=== PATIENT | male | born 1985 | race Caucasian/White ===

== ENCOUNTER 2017-08-17 15:08 | Observation (INO) | payer SELFPAY ==
[2017-08-17] VITALS (9 sets, daily range): BP systolic 119–149; BP diastolic 73–85
[~2017-08-17] VITALS: Ht 172.7 cm; Wt 79.4 kg
[2017-08-17] MEDS ORDERED: IV NORMAL SALINE 1000ML BAG 1,000 ML IV SCH (15:39)
[2017-08-17] MEDS ORDERED: ONDANSETRON PF 4 MG/2 ML VIAL. IV ONE (15:45)
[2017-08-17] MEDS ORDERED: PROPOFOL 20 ML IV ONE ×2 (15:45→17:52)
--- NOTE | 2017-08-17 15:47 | PHYS DOC ---
Past Medical History Past Medical History: No Pertinent History Past Surgical History: Other Additional Past Surgical Histo: Left shoulder Alcohol Use: None Drug Use: Marijuana Adult General Chief Complaint Chief Complaint: SHOULDER INJURY HPI HPI Patient is a 31 year old male who presents with complaint of left shoulder injury. The patient states that he fell proximally 6 feet over railing after he was bumped into by his dog approximately 30 minutes prior to arrival. Patient states he fell onto his left shoulder causing injury. Patient has had history of recurrent left shoulder dislocations and underwent surgery several years ago to the shoulder to try to prevent further recurrence. Patient states that he has had one dislocation since his surgery. Patient states that he is from [place], [place] and just recently moved to the [facility]. Patient does not have primary doctor. Patient rates his pain as 9 out of 10. Patient denies loss of feeling in his left hand. Patient unable to move his left upper extremity secondary to pain in the shoulder. Patient denies any other injuries. Review of Systems Review of Systems Constitutional: Denies fever or chills [] Eyes: Denies change in visual acuity, redness, or eye pain [] HENT: Denies nasal congestion or sore throat [] Respiratory: Denies cough or shortness of breath [] Cardiovascular: No additional information not addressed in HPI [] GI: Denies abdominal pain, nausea, vomiting, bloody stools or diarrhea [] : Denies dysuria or hematuria [] Musculoskeletal: Left shoulder pain[] Integument: Denies rash or skin lesions [] Neurologic: Denies headache, focal weakness or sensory changes [] Current Medications Current Medications Current Medications Medications (Trade) Dose Ordered Sig/Roberto Start Time Stop Time Status Last Admin Dose Admin Acetaminophen/ Hydrocodone Bitart (Lortab 10/325) 1 tab PRN Q3HRS PRN 08/17/17 18:15 Acetaminophen/ Hydrocodone Bitart (Lortab 7.5/325) 1 tab PRN Q3HRS PRN 08/17/17 18:15 Bisacodyl (Dulcolax Supp) 10 mg 1X PRN PRN 08/18/17 16:00 Calcium Carbonate/ Glycine (Tums) 500 mg PRN QID PRN 08/17/17 18:15 Dextrose (Dextrose 50%-Water Syringe) 12.5 gm PRN Q15MIN PRN 08/17/17 18:15 Dextrose/Sodium Chloride 1,000 ml @ 100 mls/hr Q10H 08/17/17 19:00 Fentanyl Citrate (Fentanyl 2ml Vial) 50 mcg PRN Q5MIN PRN 08/17/17 17:45 08/18/17 17:44 Hydromorphone HCl (Dilaudid) 0.5 mg PRN Q10MIN PRN 08/17/17 17:45 08/18/17 17:44 Lidocaine HCl (Lidocaine Pf 2% Vial) 5 ml STK-MED ONCE 08/17/17 17:52 08/17/17 17:53 DC Lidocaine HCl (Xylocaine-Mpf 1% Vial) 2 ml 1X PRN PRN 08/17/17 17:45 08/18/17 17:44 Magnesium Hydroxide (Milk Of Magnesia) 2,400 mg 1X PRN PRN 08/18/17 06:00 Metoclopramide HCl (Reglan) 10 mg PRN Q4HRS PRN 08/17/17 18:15 Morphine Sulfate 2 mg PRN Q1HR PRN 08/17/17 18:15 Multivitamins (Thera M Plus) 1 tab DAILY 08/18/17 09:00 Ondansetron HCl (Zofran) 4 mg PRN Q6HRS PRN 08/17/17 17:45 08/18/17 17:44 Oxycodone/ Acetaminophen (Percocet 5/325) 1 tab PRN Q3HRS PRN 08/17/17 18:15 Oxycodone/ Acetaminophen (Percocet 7.5/ 325) 1 tab PRN Q3HRS PRN 08/17/17 18:15 Prochlorperazine Edisylate (Compazine) 5 mg PACU PRN PRN 08/17/17 17:45 08/18/17 17:44 Prochlorperazine Maleate (Compazine) 10 mg PRN Q4HRS PRN 08/17/17 18:15 Propofol 20 ml @ As Directed STK-MED ONCE 08/17/17 17:52 08/17/17 17:53 DC Ringer's Solution 1,000 ml @ 30 mls/hr Q24H 08/17/17 17:39 08/18/17 05:38 Senna/Docusate Sodium (Senna Plus) 1 tab DAILY 08/18/17 09:00 Sodium Chloride (Normal Saline Flush) 10 ml QSHIFT PRN 08/17/17 18:15 Tramadol HCl (Ultram) 100 mg PRN QID PRN 08/17/17 18:15 Zolpidem Tartrate (Ambien) 5 mg PRN QHS PRN 08/17/17 18:15 Allergies Allergies Allergies Coded Allergies Type Severity Reaction Last Updated Verified ketamine Allergy Intermediate 08/17/17 Yes Physical Exam Physical Exam Constitutional: Alert, afebrile, appears in moderate to severe discomfort. [] HENT: Normocephalic, atraumatic, bilateral external ears normal, oropharynx moist, no oral exudates, nose normal. [] Eyes: PERRLA, EOMI, conjunctiva normal, no discharge. [] Neck: Normal range of motion, no tenderness, supple, no stridor. [] Cardiovascular:Heart rate regular rhythm, no murmur [] Lungs & Thorax: Bilateral breath sounds clear to auscultation [] Abdomen: Bowel sounds normal, soft, no tenderness, no masses, no pulsatile masses. [] Skin: Warm, dry, no erythema, no rash. [] Back: No tenderness, no CVA tenderness. [] Extremities: Anterior inferior left shoulder deformity, sensation and pulses intact in left hand and wrist, range of motion and left shoulder not tested secondary to pain. [] Neurologic: Alert and oriented X 3, normal motor function, normal sensory function, no focal deficits noted. [] Current Patient Data Vital Signs Vital Signs Date Time Temp Pulse Resp B/P (MAP) Pulse Ox O2 Delivery O2 Flow Rate FiO2 08/17/17 17:38 18 98 Room Air 08/17/17 17:26 08/17/17 17:07 90 08/17/17 17:03 2.0 08/17/17 15:20 98.4 98.4 Lab Values Laboratory Tests Test 08/17/17 15:20 White Blood Count 10.0 x10^3/uL (4.0-11.0) Red Blood Count 4.77 x10^6/uL (4.30-5.70) Hemoglobin 14.9 g/dL (13.0-17.5) Hematocrit 42.5 % (39.0-53.0) Mean Corpuscular Volume 89 fL (79-100) Mean Corpuscular Hemoglobin 31 pg (25-35) Mean Corpuscular Hemoglobin Concent 35 g/dL (31-37) Red Cell Distribution Width 13.6 % (11.5-14.5) Platelet Count 293 x10^3/uL (140-400) Neutrophils (%) (Auto) 68 % (31-73) Lymphocytes (%) (Auto) 22 % (24-48) L Monocytes (%) (Auto) 7 % (0-9) Eosinophils (%) (Auto) 3 % (0-3) Basophils (%) (Auto) 1 % (0-3) Neutrophils # (Auto) 6.8 x10^3uL (1.8-7.7) Lymphocytes # (Auto) 2.2 x10^3/uL (1.0-4.8) Monocytes # (Auto) 0.7 x10^3/uL (0.0-1.1) Eosinophils # (Auto) 0.3 x10^3/uL (0.0-0.7) Basophils # (Auto) 0.0 x10^3/uL (0.0-0.2) Sodium Level 140 mmol/L (136-145) Potassium Level 3.8 mmol/L (3.5-5.1) Chloride Level 102 mmol/L (98-107) Carbon Dioxide Level 29 mmol/L (21-32) Anion Gap 9 (6-14) Blood Urea Nitrogen 15 mg/dL (8-26) Creatinine 0.8 mg/dL (0.7-1.3) Estimated GFR (Cockcroft-Gault) 112.0 Glucose Level 121 mg/dL (70-99) H Calcium Level 9.0 mg/dL (8.5-10.1) Laboratory Tests 08/17/17 15:20 Laboratory Tests 08/17/17 15:20 EKG EKG Rhythm strip interpreted by me: Heart rate 87, sinus rhythm, no ectopy[] Radiology/Procedures Radiology/Procedures Indication: Left shoulder dislocation Consent: I have discussed with the patient and/or the patient home furnishings sales representative the indication, alternatives, and the possible risks and /or complications of the planned procedure and the anesthesia methods. The patient and/or patient home furnishings sales representative appear to understand and agree to proceed. Pre-Sedation Documentation and Exam: Refer to history of present illness Airway Assessment: normal, Mallampati I Prior History of Anesthesia Complications: none. ASA Classification: 1 Sedation/ Anesthesia Plan: Propofol titrated to effect Medications Used: see nursing notes. Monitoring and Safety: The patient was placed on a surveillance system monitor and vital signs, pulse oximetry and level of consciousness were continuously evaluated throughout the procedure. At 1644, the patient was given initial bolus of propofol. The patient was closely monitored until recovery from the medications was complete and the patient had returned to baseline status at 1655. Respiratory therapy was on standby at all times during the procedure. (The following sections must be completed) Post-Sedation Vital Signs: [EDM.VS] Post-Sedation Exam: Continued anterior dislocation of left shoulder Complications: none.[] Indication: Joint dislocation Consent: Consent was obtained. Procedure: The pre-reduction exam showed distal perfusion and neurologic function to be normal.. The patient was placed in the appropriate position. Anesthesia/pain control was achieved with use of propofol and fentanyl. Reduction of the left shoulder was attempted by traction countertraction, direct manipulation, and external rotation. Successful reduction was not achieved. A post-reduction exam revealed distal perfusion and neurologic function to be normal. The affected area was immobilized with a shoulder immobilizer. The patient tolerated the procedure well. Complications: Unsuccessful reduction of left shoulder dislocation. Course & Med Decision Making Course & Med Decision Making Pertinent Labs and Imaging studies reviewed. (See chart for details) Attempt was made at joint reduction as outlined in the procedure note, however the patient's shoulder dislocation remains unreduced. I spoke with Dr. Oseguera of orthopedic surgery. He agreed to come to the emergency department with plans to take patient to the operating room for outpatient joint reduction under anesthesia. Spoke with patient who is in agreement with treatment plan at this time. Patient continued to be controlled with use of fentanyl IV pending joint reduction. Dragon Disclaimer Dragon Disclaimer This electronic medical record was generated, in whole or in part, using a voice recognition dictation system. Departure Departure Impression: Primary Impression: Recurrent dislocation, left shoulder Disposition: HOME, SELF-CARE Condition: STABLE Referrals: NO PCP (PCP) AGNIESZKA MELENDEZ MD Aug 17, 2017 15:47
[2017-08-17] MEDS ORDERED: fentaNYL PF VIAL 100 MCG/2 ML VIAL ONE ×2 (15:49→18:23)
[2017-08-17 15:50] LABS: BASO % 1 % (0-3); EOS % 3 % (0-3); HEMATOCRIT 42.5 % (39.0-53.0); HEMOGLOBIN 14.9 g/dL (13.0-17.5); LYMPH # 2.2 x10^3/uL (1.0-4.8); LYMPH % 22 % (24-48); MEAN CORPUSCULAR HEMOGLOBIN 31 pg (25-35); MEAN CORPUSCULAR HGB CONC 35 g/dL (31-37); MEAN CORPUSCULAR VOLUME 89 fL (79-100); MONO % 7 % (0-9); NEUT % 68 % (31-73); PLATELET COUNT 293 x10^3/uL (140-400); RED BLOOD COUNT 4.77 x10^6/uL (4.30-5.70); RED CELL DISTRIBUTION WIDTH 13.6 % (11.5-14.5)
[2017-08-17] MEDS: fentaNYL PF VIAL 100 MCG/2 ML VIAL IV PRN ×5 (15:52→19:30)
[2017-08-17 16:01] LABS: CREATININE 0.8 mg/dL (0.7-1.3); POTASSIUM 3.8 mmol/L (3.5-5.1)
--- NOTE | 2017-08-17 17:29 | RAD ---
Indication post reduction. AP and Y views of the left shoulder were obtained at 1720 and are compared to a study at 1602 the same day. Anterior dislocation persists. There has not been a significant change relative to the previous study. IMPRESSION: Persistent anterior dislocation.
[2017-08-17] MEDS ORDERED: HYDROmorphone 2 MG/ML VIAL IV ONE (17:30)
--- NOTE | 2017-08-17 17:30 | RAD ---
Indication fall. Pain. 2 AP views and a Y-view of the left shoulder were obtained. There is an anterior dislocation. There are some cystic degenerative changes seen in the humeral head. There is a probable Hill-Sachs deformity. Postoperative changes are noted associated with the glenoid. IMPRESSION: Anterior dislocation left shoulder
[2017-08-17] MEDS ORDERED: IV RINGERS,LACTATED 1000ML 1,000 ML IV SCH (17:39)
[2017-08-17] MEDS ORDERED: HYDROmorphone 2 MG/ML VIAL IV PRN (17:45)
[2017-08-17] MEDS ORDERED: LIDOCAINE 1% PF 2 ML VIAL. ID PRN (17:45)
[2017-08-17] MEDS ORDERED: fentaNYL PF VIAL 100 MCG/2 ML VIAL IV PRN (17:45)
[2017-08-17] MEDS ORDERED: ONDANSETRON PF 4 MG/2 ML VIAL. IV PRN (17:45)
[2017-08-17] MEDS ORDERED: PROCHLORPERAZINE 10 MG/2 ML VIAL. IV PRN (17:45)
[2017-08-17] MEDS ORDERED: MORPHINE SULFATE 2 MG/ML DISP.SYRIN. IV PRN (17:45)
[2017-08-17] MEDS ORDERED: LIDOCAINE 2% PF Vial for OR 5 ML VIAL. ONE (17:52)
--- NOTE | 2017-08-17 18:11 | PDOC2 ---
CONSULT Date of Consult Date of Consult DATE: 08/17/17 TIME: 18:05 Reason for Consult Reason for Consult: Recurrent left shoulder dislocation Referring Physician Referring Physician: Osvaldo Amato Identification/Chief Complaint Chief Complaint Left shoulder pain Problems: Source Source: Patient History of Present Illness Reason for Visit: Patient is a 31-year-old gentleman who has undergone 4 prior shoulder procedures and fell over a railing landing onto an extended left upper extremity. He felt his shoulder pop operative medially. He has had about 4 or 5 prior shoulder dislocations in total. All of his most recent ones have involved a fall from a height. He works as a manual construction laborer putting a pulses. He tells me that in addition to the shoulder pain which is diffuse and worse with any attempted movement, that he also has some stiffness and heavy feelings in his fingers right now. He denies any other complaint or concern. He denies hitting his head. No other pain elsewhere right now. Past Medical History Cardiovascular: No pertinent hx Pulmonary: No pertinent hx GI: No pertinent hx Infectious disease: No pertinent hx ENT: No pertinent hx Past Surgical History Past Surgical History He had 2 arthroscopic procedures followed by ranjith Salinas which had to be redone when he fell again from a height and broke the screws and bone block. He had a subsequent bone block procedure and has not dislocated since his most recent one Family History Family History: No Significant Social History No ALCOHOL: none Drugs: Marijuana Lives: Alone Current Medications Current Medications Current Medications Fentanyl Citrate (Fentanyl 2ml Vial) 50 mcg PRN Q15MIN PRN IV PAIN GREATER THAN 3/10 Last administered on 08/17/17 17:03; Start 08/17/17 at 15:45; Stop 08/18/17 at 15:44 Sodium Chloride 1,000 ml @ 1,000 mls/hr Q1H IV Last administered on 15:52; Start 08/17/17 at 15:39; Stop 08/17/17 at 16:38; Status DC Ondansetron HCl (Zofran) 4 mg 1X ONCE IV Last administered on 08/17/17 15:52 ; Start 08/17/17 at 15:45; Stop 08/17/17 at 15:49; Status DC Propofol 20 ml @ 0 mls/hr 1X ONCE IV Last administered on 08/17/17 17:07; Start 08/17/17 at 15:45; Stop 08/17/17 at 15:49; Status DC Fentanyl Citrate (Fentanyl 2ml Vial) 100 mcg STK-MED ONCE .ROUTE ; Start at 15:49; Stop 08/17/17 at 15:50; Status DC Hydromorphone HCl (Dilaudid) 1 mg 1X ONCE IV Last administered on 08/17/17t 17:38; Start 08/17/17 at 17:30; Stop 08/17/17 at 17:31; Status DC Ondansetron HCl (Zofran) 4 mg PRN Q6HRS PRN IV NAUSEA/VOMITING; Start at 17:45; Stop 08/18/17 at 17:44 Fentanyl Citrate (Fentanyl 2ml Vial) 25 mcg PRN Q5MIN PRN IV MILD PAIN; Start 08/17/17 at 17:45; Stop 08/18/17 at 17:44 Fentanyl Citrate (Fentanyl 2ml Vial) 50 mcg PRN Q5MIN PRN IV MODERATE PAIN; Start 08/17/17 at 17:45; Stop 08/18/17 at 17:44 Morphine Sulfate 1 mg PRN Q10MIN PRN IV SEVERE PAIN; Start 08/17/17 at 17:45; Stop 08/18/17 at 17:44 Ringer's Solution 1,000 ml @ 30 mls/hr Q24H IV ; Start 08/17/17 at 17:39; Stop 08/18/17 at 05:38 Lidocaine HCl (Xylocaine-Mpf 1% Vial) 2 ml 1X PRN PRN ID IV START; Start 08/17 at 17:45; Stop 08/18/17 at 17:44 Hydromorphone HCl (Dilaudid) 0.5 mg PRN Q10MIN PRN IV SEV PAIN, Second choice; Start 08/17/17 at 17:45; Stop 08/18/17 at 17:44 Prochlorperazine Edisylate (Compazine) 5 mg PACU PRN PRN IV NAUSEA, MRX1; Start 08/17/17 at 17:45; Stop 08/18/17 at 17:44 Propofol 20 ml @ As Directed STK-MED ONCE IV ; Start 08/17/17 at 17:52; Stop 08/17/17 at 17:53; Status DC Lidocaine HCl (Lidocaine Pf 2% Vial) 5 ml STK-MED ONCE .ROUTE ; Start 08/17/17 at 17:52; Stop 08/17/17 at 17:53; Status DC Allergies Allergies: Coded Allergies: ketamine (Verified Allergy, Intermediate, 08/17/17) "hard time recovering" ROS General: No: Chills, Night Sweats, Fatigue, Malaise, Appetite, Other PSYCHOLOGICAL ROS: No: Anxiety, Behavioral Disorder, Concentration difficultie , Decreased libido, Depression, Disorientation, Hallucinations, Hostility, Irritablity, Memory difficulties, Mood Swings, Obsessive thoughts, Physical abuse, Sexual abuse, Sleep disturbances, Suicidal ideation, Other Eyes: No Blurry vision, No Decreased vision, No Double vision, No Dry eyes, No Excessive tearing, No Eye Pain, No Itchy Eyes, No Loss of vision, No Photophobia , No Scotomata, No Uses contacts, No Uses glasses, No Other ALLERGY AND IMMUNOLOGY: No: Hives, Insect Bite Sensitivity, Itchy/Watery Eyes, Nasal Congestion, Post Nasal Drip, Seasonal Allergies, Other Hematological and Lymphatic: No: Bleeding Problems, Blood Clots, Blood Transfusions, Brusing, Night Sweats, Pallor, Swollen Lymph Nodes, Other ENDOCRINE: No: Breast Changes, Galactorrhea, Hair Pattern Changes, Hot Flashes , Malaise/lethargy, Mood Swings, Palpitations, Polydipsia/polyuria, Skin Changes , Temperature Intolerance, Unexpected Weight Changes, Other Respiratory: No: Cough, Hemoptysis, Orthopnea, Pleuritic Pain, Shortness of breath, SOB with excertion, Sputum Changes, Stridor, Tachypnea, Wheezing, Other Cardiovascular: No Chest Pain, No Palpitations, No Orthopnea, No Paroxysmal Noc. Dyspnea, No Edema, No Lt Headedness, No Other Gastrointestinal: No Nausea, No Vomiting, No Abdominal Pain, No Diarrhea, No Constipation, No Melena, No Hematochezia, No Other Genitourinary: No Dysuria, No Frequency, No Incontinence, No Hematuria, No Retention, No Discharge, No Urgency, No Pain, No Flank Pain, No Other, No , No , No , No , No , No , No Musculoskeletal: Yes Joint Pain Physical Exam General: Alert, Oriented X3, mild distress HEENT: Atraumatic, PERRLA, EOMI Lungs: Clear to auscultation, Normal air movement Heart: Regular rate, No murmurs Abdomen: Normal bowel sounds, No tenderness Extremities: No clubbing, Normal pulses Skin: No rashes, No breakdown, Other (scars over left shoulder region consistent with prior surgeries) Neuro: Normal speech, Sensation intact, Other (motor is intact median, radial, and ulnar nerves. Axillary motor intact as well.) Psych/Mental Status: Mental status NL, Mood NL MUSCULOSKELETAL: Other (he has obvious gross deformity with persistent sulcus sign and fullness in his anterior shoulder girdle. Pain with any range of motion. Unable to actively move his left shoulder.) Vitals VITALS Vital Signs Date Time Temp Pulse Resp B/P (MAP) Pulse Ox O2 Delivery O2 Flow Rate FiO2 08/17/17 17:38 18 98 Room Air 08/17/17 17:26 08/17/17 17:07 90 08/17/17 17:03 2.0 08/17/17 15:20 98.4 98.4 Labs Labs Laboratory Tests Test 08/17/17 15:20 White Blood Count 10.0 x10^3/uL (4.0-11.0) Red Blood Count 4.77 x10^6/uL (4.30-5.70) Hemoglobin 14.9 g/dL (13.0-17.5) Hematocrit 42.5 % (39.0-53.0) Mean Corpuscular Volume 89 fL (79-100) Mean Corpuscular Hemoglobin 31 pg (25-35) Mean Corpuscular Hemoglobin Concent 35 g/dL (31-37) Red Cell Distribution Width 13.6 % (11.5-14.5) Platelet Count 293 x10^3/uL (140-400) Neutrophils (%) (Auto) 68 % (31-73) Lymphocytes (%) (Auto) 22 % (24-48) Monocytes (%) (Auto) 7 % (0-9) Eosinophils (%) (Auto) 3 % (0-3) Basophils (%) (Auto) 1 % (0-3) Neutrophils # (Auto) 6.8 x10^3uL (1.8-7.7) Lymphocytes # (Auto) 2.2 x10^3/uL (1.0-4.8) Monocytes # (Auto) 0.7 x10^3/uL (0.0-1.1) Eosinophils # (Auto) 0.3 x10^3/uL (0.0-0.7) Basophils # (Auto) 0.0 x10^3/uL (0.0-0.2) Sodium Level 140 mmol/L (136-145) Potassium Level 3.8 mmol/L (3.5-5.1) Chloride Level 102 mmol/L (98-107) Carbon Dioxide Level 29 mmol/L (21-32) Anion Gap 9 (6-14) Blood Urea Nitrogen 15 mg/dL (8-26) Creatinine 0.8 mg/dL (0.7-1.3) Estimated GFR (Cockcroft-Gault) 112.0 Glucose Level 121 mg/dL (70-99) Calcium Level 9.0 mg/dL (8.5-10.1) Laboratory Tests Test 08/17/17 15:20 White Blood Count 10.0 x10^3/uL (4.0-11.0) Red Blood Count 4.77 x10^6/uL (4.30-5.70) Hemoglobin 14.9 g/dL (13.0-17.5) Hematocrit 42.5 % (39.0-53.0) Mean Corpuscular Volume 89 fL (79-100) Mean Corpuscular Hemoglobin 31 pg (25-35) Mean Corpuscular Hemoglobin Concent 35 g/dL (31-37) Red Cell Distribution Width 13.6 % (11.5-14.5) Platelet Count 293 x10^3/uL (140-400) Neutrophils (%) (Auto) 68 % (31-73) Lymphocytes (%) (Auto) 22 % (24-48) Monocytes (%) (Auto) 7 % (0-9) Eosinophils (%) (Auto) 3 % (0-3) Basophils (%) (Auto) 1 % (0-3) Neutrophils # (Auto) 6.8 x10^3uL (1.8-7.7) Lymphocytes # (Auto) 2.2 x10^3/uL (1.0-4.8) Monocytes # (Auto) 0.7 x10^3/uL (0.0-1.1) Eosinophils # (Auto) 0.3 x10^3/uL (0.0-0.7) Basophils # (Auto) 0.0 x10^3/uL (0.0-0.2) Sodium Level 140 mmol/L (136-145) Potassium Level 3.8 mmol/L (3.5-5.1) Chloride Level 102 mmol/L (98-107) Carbon Dioxide Level 29 mmol/L (21-32) Anion Gap 9 (6-14) Blood Urea Nitrogen 15 mg/dL (8-26) Creatinine 0.8 mg/dL (0.7-1.3) Estimated GFR (Cockcroft-Gault) 112.0 Glucose Level 121 mg/dL (70-99) Calcium Level 9.0 mg/dL (8.5-10.1) Images Images 2 separate series of shoulder x-rays were interpreted by myself. Reports were reviewed. He has a bone block with screws in place and a broken screw in between these. He has an anterior inferior glenohumeral dislocation. There does appear to be some old suture anchor holes around his glenoid as well. Assessment/Plan Assessment/Plan Recurrent left shoulder dislocation. I did discuss with him that because sedation in the emergency department was unable to reduce his shoulder, I recommended proceeding to the OR for a deeper sedation and airway monitoring, possibly general anesthetic. He and I discussed admitting for observation after this. The risks, benefits, and alternatives were discussed with him and he would like to proceed. BALDEV WHITE II, MD Aug 17, 2017 18:10
[2017-08-17] MEDS ORDERED: HYDROcodone/APAP 7.5/325MG 1 TAB TABLET PO PRN (18:15)
[2017-08-17] MEDS ORDERED: HYDROcodone/APAP 10/325 1 TAB TABLET PO PRN (18:15)
[2017-08-17] MEDS ORDERED: METOCLOPRAMIDE HCL 10 MG/2 ML VIAL. IV PRN (18:15)
[2017-08-17] MEDS ORDERED: DEXTROSE 50% 25 GM / 50ML DISP.SYRIN. IV PRN (18:15)
[2017-08-17] MEDS ORDERED: PROCHLORPERAZINE 5 MG TABLET. PO PRN (18:15)
[2017-08-17] MEDS ORDERED: CALCIUM CARBONATE 500 MG TAB.CHEW PO PRN (18:15)
[2017-08-17] MEDS ORDERED: traMADol 50 MG TABLET PO PRN ×2 (18:15)
[2017-08-17] MEDS ORDERED: oxyCODONE/APAP 5/325 1 TAB TABLET PO PRN (18:15)
[2017-08-17] MEDS ORDERED: 0.9 % SODIUM CHLORIDE 10 ML DISP.SYRIN. IV PRN (18:15)
[2017-08-17] MEDS ORDERED: ZOLPIDEM 5 MG TABLET. PO PRN (18:15)
--- NOTE | 2017-08-17 18:21 | PDOC ---
BRIEF OPERATIVE NOTE Date: Aug 17, 2017 Pre-Op Diagnosis Recurrent L shoulder dislocation Post-Op Diagnosis same Procedure Performed Closed reduction, left shoulder; exam under anesthesia Surgeon Oumar Anesthesiologist Mitchell Anesthesia Type: General Complications none BALDEV WHITE II, MD Aug 17, 2017 18:21
[2017-08-17] MEDS ORDERED: SUCCINYLCHOLINE 200 MG/10 ML VIAL. ONE (18:22)
[2017-08-17] MEDS ORDERED: ONDANSETRON PF 4 MG/2 ML VIAL. ONE (18:37)
[2017-08-17] MEDS ORDERED: DEXAMETHASONE SOD PHOS 20 MG/5 ML VIAL. ONE (18:37)
[2017-08-17] MEDS ORDERED: SEVOFLURANE UP TO 15 MINUTES. IH ONE (18:41)
[2017-08-17] MEDS: IV DEXTROSE 5 %-0.45 % NACL 1,000 ML IV SCH (19:00)
--- NOTE | 2017-08-17 19:33 | OP ---
DATE OF SURGERY: 08/17/2017 SURGEON: Marcos White MD CLINICAL IMPLEMENTATION SPECIALIST: None. ANESTHESIA: General with LMA. PREOPERATIVE DIAGNOSIS: Recurrent left anterior glenohumeral dislocation. POSTOPERATIVE DIAGNOSIS: Recurrent left anterior glenohumeral dislocation. PROCEDURES PERFORMED: 1. Closed reduction, anterior left glenohumeral dislocation. 2. Examination under anesthesia, left glenohumeral joint. COMPLICATIONS: None. ESTIMATED BLOOD LOSS: Zero. FINDINGS: The patient had a fairly easily reducible shoulder under general anesthetic. His load and shift was 1 posterior, 2 anterior. Radiographic visualization demonstrated flattening of his humeral head, Hill-Sachs type deformity. 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 For details, please see my consult note. They had attempted a closed reduction in the ER, but were unsuccessful and I had a discussion of risks, benefits, alternatives of the above procedure with the patient and he elected to proceed. DESCRIPTION OF PROCEDURE: The patient was greeted in the preoperative area by myself. The correct extremity was marked and verified. He was taken back to the operative suite and had successful induction of anesthetic with an LMA. We then transferred him to an OR table and I performed a traction-countertraction to reduce his shoulder. We then brought in C-arm to obtain AP and lateral images to confirm reduction. I performed images with different rotations as well to more fully assess his humeral head anatomy. After this, he was awakened from anesthesia after he was placed into a shoulder immobilizer. He tolerated this well. No complications. At the conclusion of this, he was transferred gently supine to the recovery room cart and taken to PACU in stable and extubated condition. Postoperative plan is to admit him for observation and pain control. He will be nonweightbearing x 6 weeks. We will get him started on physical therapy as well. MARCOS WIHTE MD DR: NICK/ruthie JOB#: [id number] / [id number] CARLOS
[2017-08-17] MEDS: oxyCODONE/APAP 7.5/325 1 TAB TABLET PO PRN ×2 (20:04→23:13)
[2017-08-17] MEDS: MORPHINE SULFATE 2 MG/ML DISP.SYRIN. IV PRN ×3 (20:05→23:14)
[2017-08-18] MEDS: MORPHINE SULFATE 2 MG/ML DISP.SYRIN. IV PRN ×6 (01:22→10:43)
[2017-08-18 02:06] VITALS: BP 135/82
[2017-08-18] MEDS: oxyCODONE/APAP 7.5/325 1 TAB TABLET PO PRN ×2 (03:50→10:20)
[2017-08-18] MEDS: IV DEXTROSE 5 %-0.45 % NACL 1,000 ML IV SCH ×3 (05:00→11:51)
[2017-08-18] MEDS ORDERED: MAGNESIUM HYDROXIDE 2,400 MG/30 ML ORAL.SUSP. PO PRN (06:00)
[2017-08-18 06:11] VITALS: BP 121/67
--- NOTE | 2017-08-18 08:14 | PDOC ---
ORTHO PROGRESS NOTES Subjective felt some sharp pain upon awakening at one point last night. Feels tingling in whole hand on L Vitals Vital Signs Date Time Temp Pulse Resp B/P (MAP) Pulse Ox O2 Delivery O2 Flow Rate FiO2 08/18/17 07:37 18 08/18/17 07:20 97 Room Air 08/18/17 06:11 97.9 78 121/67 (85) 97.9 08/18/17 03:10 8.0 Labs Laboratory Tests Test 08/17/17 15:20 White Blood Count 10.0 x10^3/uL (4.0-11.0) Red Blood Count 4.77 x10^6/uL (4.30-5.70) Hemoglobin 14.9 g/dL (13.0-17.5) Hematocrit 42.5 % (39.0-53.0) Mean Corpuscular Volume 89 fL (79-100) Mean Corpuscular Hemoglobin 31 pg (25-35) Mean Corpuscular Hemoglobin Concent 35 g/dL (31-37) Red Cell Distribution Width 13.6 % (11.5-14.5) Platelet Count 293 x10^3/uL (140-400) Neutrophils (%) (Auto) 68 % (31-73) Lymphocytes (%) (Auto) 22 % (24-48) Monocytes (%) (Auto) 7 % (0-9) Eosinophils (%) (Auto) 3 % (0-3) Basophils (%) (Auto) 1 % (0-3) Neutrophils # (Auto) 6.8 x10^3uL (1.8-7.7) Lymphocytes # (Auto) 2.2 x10^3/uL (1.0-4.8) Monocytes # (Auto) 0.7 x10^3/uL (0.0-1.1) Eosinophils # (Auto) 0.3 x10^3/uL (0.0-0.7) Basophils # (Auto) 0.0 x10^3/uL (0.0-0.2) Sodium Level 140 mmol/L (136-145) Potassium Level 3.8 mmol/L (3.5-5.1) Chloride Level 102 mmol/L (98-107) Carbon Dioxide Level 29 mmol/L (21-32) Anion Gap 9 (6-14) Blood Urea Nitrogen 15 mg/dL (8-26) Creatinine 0.8 mg/dL (0.7-1.3) Estimated GFR (Cockcroft-Gault) 112.0 Glucose Level 121 mg/dL (70-99) Calcium Level 9.0 mg/dL (8.5-10.1) Laboratory Tests Test 08/17/17 15:20 White Blood Count 10.0 x10^3/uL (4.0-11.0) Red Blood Count 4.77 x10^6/uL (4.30-5.70) Hemoglobin 14.9 g/dL (13.0-17.5) Hematocrit 42.5 % (39.0-53.0) Mean Corpuscular Volume 89 fL (79-100) Mean Corpuscular Hemoglobin 31 pg (25-35) Mean Corpuscular Hemoglobin Concent 35 g/dL (31-37) Red Cell Distribution Width 13.6 % (11.5-14.5) Platelet Count 293 x10^3/uL (140-400) Neutrophils (%) (Auto) 68 % (31-73) Lymphocytes (%) (Auto) 22 % (24-48) Monocytes (%) (Auto) 7 % (0-9) Eosinophils (%) (Auto) 3 % (0-3) Basophils (%) (Auto) 1 % (0-3) Neutrophils # (Auto) 6.8 x10^3uL (1.8-7.7) Lymphocytes # (Auto) 2.2 x10^3/uL (1.0-4.8) Monocytes # (Auto) 0.7 x10^3/uL (0.0-1.1) Eosinophils # (Auto) 0.3 x10^3/uL (0.0-0.7) Basophils # (Auto) 0.0 x10^3/uL (0.0-0.2) Sodium Level 140 mmol/L (136-145) Potassium Level 3.8 mmol/L (3.5-5.1) Chloride Level 102 mmol/L (98-107) Carbon Dioxide Level 29 mmol/L (21-32) Anion Gap 9 (6-14) Blood Urea Nitrogen 15 mg/dL (8-26) Creatinine 0.8 mg/dL (0.7-1.3) Estimated GFR (Cockcroft-Gault) 112.0 Glucose Level 121 mg/dL (70-99) Calcium Level 9.0 mg/dL (8.5-10.1) Notes A and A mild loss of deltoid tone, otherwise no gross abnormalities at L shoulder immob in place motor intact m/r/u tingling m/r/u in hand radial 2+ Assessment and Plan will check Xrays, if ok, will be able to D/C BALDEV WHITE II, MD Aug 18, 2017 08:14
[2017-08-18] MEDS ORDERED: MULTIVITAMIN with MINERAL TABLET. PO SCH (09:00)
[2017-08-18] MEDS ORDERED: SENNOSIDES/DOCUSATE 8.6/50MG TABLET. PO SCH (09:00)
--- NOTE | 2017-08-18 09:58 | RAD ---
Indication dislocated shoulder. 2 AP views and a Y-view of the left shoulder were obtained and are compared to an examination one day earlier at 1720. There has not been a significant change. Anterior dislocation persists. IMPRESSION: No significant change.
--- NOTE | 2017-08-18 10:16 | DISCH ---
DISCHARGE INSTRUCTIONS Condition on Discharge Condition on Discharge: Stable Activity After Discharge Activity Instructions for Disc: Other, see below Other activity instructions: arm to remain in sling Weight Bearing Status after Di: Non weight bearing Diet after Discharge Diet after Discharge: Regular Wound Incision Care Wound/Incision Care: Ice to area for comfort Contacting the DRAbhishek after DC Call your doctor for: Concerns you may have Follow-Up Follow up with: Oumar in 2wks BADLEV WHITE II, MD Aug 18, 2017 10:16
[2017-08-18 10:34] VITALS: BP 142/84
--- NOTE | 2017-08-18 11:06 | PDOC3 ---
Discharge Summary Visit Information Date of Admission: Aug 17, 2017 Date of Discharge: Aug 18, 2017 Admitting Diagnosis: recurrent left glenohumeral dislocation Brief Hospital Course Allergies Allergies Coded Allergies Type Severity Reaction Last Updated Verified ketamine Allergy Intermediate 08/17/17 Yes Vital Signs Vital Signs Date Time Temp Pulse Resp B/P (MAP) Pulse Ox O2 Delivery O2 Flow Rate FiO2 08/18/17 10:43 16 Room Air 08/18/17 10:34 97.6 88 142/84 (103) 97.6 08/18/17 07:20 97 08/18/17 03:10 8.0 Lab Results Laboratory Tests Test 08/17/17 15:20 White Blood Count 10.0 x10^3/uL (4.0-11.0) Red Blood Count 4.77 x10^6/uL (4.30-5.70) Hemoglobin 14.9 g/dL (13.0-17.5) Hematocrit 42.5 % (39.0-53.0) Mean Corpuscular Volume 89 fL (79-100) Mean Corpuscular Hemoglobin 31 pg (25-35) Mean Corpuscular Hemoglobin Concent 35 g/dL (31-37) Red Cell Distribution Width 13.6 % (11.5-14.5) Platelet Count 293 x10^3/uL (140-400) Neutrophils (%) (Auto) 68 % (31-73) Lymphocytes (%) (Auto) 22 % (24-48) Monocytes (%) (Auto) 7 % (0-9) Eosinophils (%) (Auto) 3 % (0-3) Basophils (%) (Auto) 1 % (0-3) Neutrophils # (Auto) 6.8 x10^3uL (1.8-7.7) Lymphocytes # (Auto) 2.2 x10^3/uL (1.0-4.8) Monocytes # (Auto) 0.7 x10^3/uL (0.0-1.1) Eosinophils # (Auto) 0.3 x10^3/uL (0.0-0.7) Basophils # (Auto) 0.0 x10^3/uL (0.0-0.2) Sodium Level 140 mmol/L (136-145) Potassium Level 3.8 mmol/L (3.5-5.1) Chloride Level 102 mmol/L (98-107) Carbon Dioxide Level 29 mmol/L (21-32) Anion Gap 9 (6-14) Blood Urea Nitrogen 15 mg/dL (8-26) Creatinine 0.8 mg/dL (0.7-1.3) Estimated GFR (Cockcroft-Gault) 112.0 Glucose Level 121 mg/dL (70-99) Calcium Level 9.0 mg/dL (8.5-10.1) Laboratory Tests Test 08/17/17 15:20 White Blood Count 10.0 x10^3/uL (4.0-11.0) Red Blood Count 4.77 x10^6/uL (4.30-5.70) Hemoglobin 14.9 g/dL (13.0-17.5) Hematocrit 42.5 % (39.0-53.0) Mean Corpuscular Volume 89 fL (79-100) Mean Corpuscular Hemoglobin 31 pg (25-35) Mean Corpuscular Hemoglobin Concent 35 g/dL (31-37) Red Cell Distribution Width 13.6 % (11.5-14.5) Platelet Count 293 x10^3/uL (140-400) Neutrophils (%) (Auto) 68 % (31-73) Lymphocytes (%) (Auto) 22 % (24-48) Monocytes (%) (Auto) 7 % (0-9) Eosinophils (%) (Auto) 3 % (0-3) Basophils (%) (Auto) 1 % (0-3) Neutrophils # (Auto) 6.8 x10^3uL (1.8-7.7) Lymphocytes # (Auto) 2.2 x10^3/uL (1.0-4.8) Monocytes # (Auto) 0.7 x10^3/uL (0.0-1.1) Eosinophils # (Auto) 0.3 x10^3/uL (0.0-0.7) Basophils # (Auto) 0.0 x10^3/uL (0.0-0.2) Sodium Level 140 mmol/L (136-145) Potassium Level 3.8 mmol/L (3.5-5.1) Chloride Level 102 mmol/L (98-107) Carbon Dioxide Level 29 mmol/L (21-32) Anion Gap 9 (6-14) Blood Urea Nitrogen 15 mg/dL (8-26) Creatinine 0.8 mg/dL (0.7-1.3) Estimated GFR (Cockcroft-Gault) 112.0 Glucose Level 121 mg/dL (70-99) Calcium Level 9.0 mg/dL (8.5-10.1) Brief Hospital Course Mr. Moncada is a 31 old male who had a fall and presented to our emergency department with pain and inability to move his left shoulder. Clinical and radiograph evidence revealed the above injury. Please see my consult note for full details. I had a discussion of the risks benefits and alternatives to a closed reduction under general anesthetic and he elected to proceed. He tolerated this well. A good reduction was achieved. He had some pain overnight we obtain follow-up x-rays which demonstrated subluxation of his glenoid humeral joint, expected given his deltoid tone. I did discuss this problem with him. Overall his hospital course was uneventful. His pain is controlled on oral pain medicine and he was having normal bowel bladder function. He tolerated regular diet. Discharge Information Condition at Discharge: Stable Disposition/Orders: D/C to Home No Active Prescriptions or Reported Meds Patient Instructions Patient Instructions His arm remain in the sling. Nonweightbearing until follow-up. We will see how his muscle function recovers. I will see him back in my clinic in 2 weeks, sooner should a problem arise BALDEV WHITE II, MD Aug 18, 2017 11:06
[2017-08-18] MEDS ORDERED: BISACODYL 10 MG SUPP.RECT. PR PRN (16:00)
== END 2017-08-18 12:41 | disposition home or self-care (01) ==
LOC: ER 15:08 → OPSVCIP 18:22 → 4 SOUTHEST 19:50
PROVIDERS: ADMIT Orthopaedic Surgery Sports Medicine; ATTEND Orthopaedic Surgery Sports Medicine
DX: M24.412 Recurrent dislocation, left shoulder (principal); W18.39XA Other fall on same level, initial encounter; Y93.89 Activity, other specified; Y92.89 Other specified places as the place of occurrence of the external cause; Y99.8 Other external cause status
CPT/HCPCS: 23655; 36415; 73030; 76001; 80048; 85025; 96365; 96375; 96376; G0378; G0379; J1100; J1170; J2270; J2405; J2704; J3010; J7030; J0330; J2001